=== PATIENT | male | born 1960 | race Caucasian/White ===

== ENCOUNTER 2017-08-10 00:35 | Inpatient (IN) | payer OTHER ==
[~2017-08-10] VITALS: Ht 175.3 cm; Wt 80.3 kg
[~2017-08-10 00:35] MED LIST: ALBUTEROL SULF8.5 GM IH; ASPIR-LOW81 MG PO; Aspirin E.C. PO; CHANTIX1 MG PO; CILOSTAZOL100 MG PO; Coumadin,Jantoven PO; FENOFIBRATE160 M1 PO; FISH OIL 1,2001 EAC4 PO; LASIX20 MG PO; LEXAPRO20 MG PO; LIPITOR20 MG PO; Lasix PO; Lipitor PO; Lovenox SC; Omnicef PO; PLAVIX75 MG PO; SPIRIVA1 INHALATI IH; TOPROL XL50 MG PO; Toprol XL PO; ZESTRIL20 MG PO; Zestril,Prinivil PO
[2017-08-10 01:42] LABS: HEMATOCRIT 47.3 % (38.0-50.0); MCH 27.9 PG (29.0-34.0); MCHC 32.6 G/DL (30.0-36.0); MCV 85.7 FL (86-99); MEAN PLAT.VOLUME 10.5 uM^3 (9.0-12.4); PLATELET COUNT 223 K/uL (156-360); RBC DIS.WIDTH-CV 17.6 % (11.8-14.6); RBC DIS.WIDTH-SD 52.5 % (39-53); RED BLOOD COUNT 5.52 M/uL (4.00-5.50); WHITE BLOOD COUNT 8.8 K/uL (4.1-10.2)
[2017-08-10 01:46] LABS: INTER. NORMALIZED RATIO 1.3; PROTHROMBIN TIME 14.3 SEC (10.2-12.9)
[2017-08-10 01:49] LABS: PTT 26.9 SEC (25-37)
[2017-08-10 01:52] LABS: CHLORIDE 98 mEq/L (99-109); POTASSIUM 3.9 mEq/L (3.7-5.4); SODIUM 135 mEq/L (136-147)
[2017-08-10 01:54] LABS: GLUCOSE 105 mg/dL (70-99)
[2017-08-10 01:56] LABS: ANION GAP 11 MEQ/L (2-14); TOTAL BILIRUBIN 1.7 mg/dL (0.0-1.0)
[2017-08-10 01:58] LABS: ALKALINE PHOSPHATASE 112 IU/L (3-129); GFR ESTIMATE (CALCULATED) > 59 mL/min/ (58.99-99999)
[2017-08-10 01:59] LABS: UREA NITROGEN (BUN) 16 mg/dL (9-23)
[2017-08-10 02:02] LABS: LIPASE 16 U/L (1.0-51.0); TROP-I INTERPRETATION NEGATIVE; TROPONIN-I 0.16 ng/mL (0.0-0.30)
[2017-08-10] MEDS ORDERED: LISINOPRIL20 MG PO (06:41)
[2017-08-10 07:42] LABS: MCH 27.3 PG (29.0-34.0); MCV 85.3 FL (86-99); MEAN PLAT.VOLUME 10.4 uM^3 (9.0-12.4); PLATELET COUNT 227 K/uL (156-360); RBC DIS.WIDTH-CV 17.2 % (11.8-14.6); RBC DIS.WIDTH-SD 51.7 % (39-53); RED BLOOD COUNT 5.16 M/uL (4.00-5.50); WHITE BLOOD COUNT 8.7 K/uL (4.1-10.2)
[2017-08-10 08:01] LABS: BASE EXCESS 1.9 mEq/L (-3 to +3); BICARBONATE 25.7 mEq/L (22-26); CARBOXY HGB 2.9 % (0-5); COMMENTS - BLOOD GASES C+; DEVICE NC; METHEMOGLOBIN 1.3 % (0-1.5); O2 FLOW 3 L/MIN; PCO2 37 mm Hg (35-45); PO2 111 mm Hg (80-100); SITE RR +A; TOTAL RESP RATE 22 resp/min; pH 7.45 (7.35-7.45)
[2017-08-10 08:45] LABS: INTACT PARATHYROID HORMONE 14 pg/mL (10-69)
[2017-08-10 10:00] VITALS: BP 136/86
[2017-08-10 12:29] LABS: TROP-I INTERPRETATION NEGATIVE; TROPONIN-I 0.16 ng/mL (0.0-0.30)
[2017-08-10 12:44] LABS: ANION GAP 11 MEQ/L (2-14); CHLORIDE 99 MEQ/L (99-109); GFR ESTIMATE (CALCULATED) > 59 mL/min/ (58.99-99999); GLUCOSE 109 mg/dL (70-99); POTASSIUM 4.4 MEQ/L (3.7-5.4); SAMPLE HEMOLYSIS CHECK 0; SAMPLE ICTERIC CHECK 0; SAMPLE LIPEMIA CHECK 0; SODIUM 138 MEQ/L (136-147); UREA NITROGEN (BUN) 19 mg/dL (9-23)
[2017-08-10] MEDS ORDERED: ESCITALOPRAM OX20 MG PO (12:46)
[2017-08-10 13:00] VITALS: BP 127/78
[2017-08-10 18:38] LABS: TROP-I INTERPRETATION NEGATIVE; TROPONIN-I 0.11 ng/mL (0.0-0.30)
[2017-08-10 18:40] LABS: INTER. NORMALIZED RATIO 1.3
[2017-08-10 19:30] VITALS: BP 125/83
[2017-08-11] VITALS (7 sets, daily range): BP systolic 106–140; BP diastolic 58–90
[2017-08-11 09:36] LABS: INTER. NORMALIZED RATIO 1.2; PROTHROMBIN TIME 13.7 SEC (10.2-12.9)
[2017-08-11 09:39] LABS: PTT 35.3 SEC (25-37)
[2017-08-11 10:06] LABS: ALKALINE PHOSPHATASE 77 IU/L (3-129); ANION GAP 11 MEQ/L (2-14); CHLORIDE 99 MEQ/L (99-109); GFR ESTIMATE (CALCULATED) > 59 mL/min/ (58.99-99999); GLUCOSE 97 mg/dL (70-99); SAMPLE HEMOLYSIS CHECK 0; SAMPLE ICTERIC CHECK 0; SAMPLE LIPEMIA CHECK 0; SODIUM 137 MEQ/L (136-147); TOTAL BILIRUBIN 1.2 MG/DL (0.0-1.0); UREA NITROGEN (BUN) 27 mg/dL (9-23)
[2017-08-11 10:07] LABS: POTASSIUM 3.5 MEQ/L (3.7-5.4)
[2017-08-11 11:08] LABS: EOSINOPHIL (%) 0 % (0-5); HEMATOCRIT 44.1 % (38.0-50.0); IMMATURE GRANULOCYTE (%) 0.6 % (0.0-0.7); LYMPHOCYTE COUNT 0.5 K/uL (1.0-2.8); MCH 27.4 PG (29.0-34.0); MCV 85.6 FL (86-99); MEAN PLAT.VOLUME 10.7 uM^3 (9.0-12.4); MONOCYTE (%) 6.3 % (3-12); MONOCYTE COUNT 0.4 K/uL (0-0.8); NEUTROPHIL (%) 85.6 % (45-76); PLATELET COUNT 181 K/uL (156-360); RBC DIS.WIDTH-CV 17.3 % (11.8-14.6); RBC DIS.WIDTH-SD 53.2 % (39-53); RED BLOOD COUNT 5.15 M/uL (4.00-5.50)
[2017-08-11 15:55] LABS: ADD MIUA? NO; BILIRUBIN NEGATIVE; BLOOD NEGATIVE; COLOR YELLOW ((YELLOW)); GLUCOSE (STRIP) NEGATIVE; KETONES NEGATIVE; LEUKOCYTES NEGATIVE; NITRITE NEGATIVE; PROTEIN (STRIP) 30; SPECIFIC GRAVITY 1.026 (1.000-1.030); UROBILINOGEN 0.2 MG/DL (0.2-1.0)
[2017-08-11 16:20] LABS: UR CREATININE CONCENTRATION 125.9 MG/DL
[2017-08-12 03:30] VITALS: BP 110/80
[2017-08-12 08:18] LABS: EOSINOPHIL (%) 0 % (0-5); HEMATOCRIT 41.6 % (38.0-50.0); IMMATURE GRANULOCYTE (%) 0.7 % (0.0-0.7); IMMATURE GRANULOCYTE COUNT 0.1 K/uL; LYMPHOCYTE COUNT 0.6 K/uL (1.0-2.8); MCHC 32.5 G/DL (30.0-36.0); MCV 86.1 FL (86-99); MEAN PLAT.VOLUME 10.6 uM^3 (9.0-12.4); MONOCYTE (%) 9.8 % (3-12); MONOCYTE COUNT 1.2 K/uL (0-0.8); PLATELET COUNT 232 K/uL (156-360); RBC DIS.WIDTH-CV 17.9 % (11.8-14.6); RBC DIS.WIDTH-SD 54.3 % (39-53); RED BLOOD COUNT 4.83 M/uL (4.00-5.50); WHITE BLOOD COUNT 11.9 K/uL (4.1-10.2)
[2017-08-12 08:20] LABS: INTER. NORMALIZED RATIO 1.2; PROTHROMBIN TIME 13.6 SEC (10.2-12.9)
[2017-08-12 08:23] LABS: PTT 51.4 SEC (25-37)
[2017-08-12 08:35] VITALS: BP 105/66
[2017-08-12 08:44] LABS: ALKALINE PHOSPHATASE 76 IU/L (3-129); ANION GAP 8 MEQ/L (2-14); CHLORIDE 101 MEQ/L (99-109); GFR ESTIMATE (CALCULATED) > 59 mL/min/ (58.99-99999); GLUCOSE 94 mg/dL (70-99); POTASSIUM 5.2 MEQ/L (3.7-5.4); SAMPLE HEMOLYSIS CHECK 0; SAMPLE ICTERIC CHECK 0; SAMPLE LIPEMIA CHECK 0; SODIUM 138 MEQ/L (136-147); TOTAL BILIRUBIN 0.9 MG/DL (0.0-1.0); UREA NITROGEN (BUN) 39 mg/dL (9-23)
[2017-08-12 11:44] VITALS: BP 108/67
[2017-08-12 15:15] VITALS: BP 101/67
[2017-08-12 19:00] VITALS: BP 132/80
[2017-08-12 23:00] VITALS: BP 125/76
[2017-08-13 04:00] VITALS: BP 103/72
[2017-08-13 05:04] LABS: EOSINOPHIL (%) 0 % (0-5); HEMATOCRIT 42.8 % (38.0-50.0); IMMATURE GRANULOCYTE (%) 0.6 % (0.0-0.7); IMMATURE GRANULOCYTE COUNT 0.1 K/uL; INSTRUMENT ABS NEUTROPHIL CT 8.8 K/uL; LYMPHOCYTE COUNT 1.2 K/uL (1.0-2.8); MCH 28.1 PG (29.0-34.0); MCHC 32.7 G/DL (30.0-36.0); MCV 85.8 FL (86-99); MEAN PLAT.VOLUME 10.4 uM^3 (9.0-12.4); MONOCYTE (%) 10.8 % (3-12); MONOCYTE COUNT 1.2 K/uL (0-0.8); NEUTROPHIL (%) 77.8 % (45-76); NEUTROPHIL COUNT 8.8 K/uL (1.8-6.4); PLATELET COUNT 232 K/uL (156-360); RBC DIS.WIDTH-CV 17.8 % (11.8-14.6); RBC DIS.WIDTH-SD 53.7 % (39-53); RED BLOOD COUNT 4.99 M/uL (4.00-5.50); WHITE BLOOD COUNT 11.3 K/uL (4.1-10.2)
[2017-08-13 05:08] LABS: INTER. NORMALIZED RATIO 2.2; PROTHROMBIN TIME 25.3 SEC (10.2-12.9)
[2017-08-13 05:20] LABS: CHLORIDE 99 mEq/L (99-109); POTASSIUM 4.8 mEq/L (3.7-5.4); SODIUM 136 mEq/L (136-147)
[2017-08-13 05:21] LABS: GLUCOSE 96 mg/dL (70-99)
[2017-08-13 05:23] LABS: ANION GAP 10 MEQ/L (2-14)
[2017-08-13 05:25] LABS: GFR ESTIMATE (CALCULATED) 51 mL/min/ (58.99-99999)
[2017-08-13 05:26] LABS: UREA NITROGEN (BUN) 42 mg/dL (9-23)
[2017-08-13 08:00] VITALS: BP 103/67
[2017-08-13 11:50] VITALS: BP 100/68
[2017-08-13 20:48] VITALS: BP 102/64
[2017-08-14] VITALS (13 sets, daily range): BP systolic 101–143; BP diastolic 62–100
[2017-08-14 05:15] LABS: EOSINOPHIL (%) 0.2 % (0-5); HEMATOCRIT 48.3 % (38.0-50.0); IMMATURE GRANULOCYTE (%) 0.8 % (0.0-0.7); IMMATURE GRANULOCYTE COUNT 0.1 K/uL; INSTRUMENT ABS NEUTROPHIL CT 9.7 K/uL; LYMPHOCYTE COUNT 1.5 K/uL (1.0-2.8); MCH 26.9 PG (29.0-34.0); MCHC 31.3 G/DL (30.0-36.0); MCV 85.9 FL (86-99); MEAN PLAT.VOLUME 9.8 uM^3 (9.0-12.4); MONOCYTE (%) 11.3 % (3-12); MONOCYTE COUNT 1.5 K/uL (0-0.8); NEUTROPHIL (%) 75.7 % (45-76); NEUTROPHIL COUNT 9.7 K/uL (1.8-6.4); PLATELET COUNT 270 K/uL (156-360); RBC DIS.WIDTH-CV 17.6 % (11.8-14.6); RBC DIS.WIDTH-SD 53.7 % (39-53); RED BLOOD COUNT 5.62 M/uL (4.00-5.50); WHITE BLOOD COUNT 12.8 K/uL (4.1-10.2)
[2017-08-14 05:47] LABS: ALKALINE PHOSPHATASE 77 IU/L (3-129); ANION GAP 9 MEQ/L (2-14); CHLORIDE 98 MEQ/L (99-109); GFR ESTIMATE (CALCULATED) 51 mL/min/ (58.99-99999); GLUCOSE 107 mg/dL (70-99); POTASSIUM 5.1 MEQ/L (3.7-5.4); SAMPLE HEMOLYSIS CHECK 0; SAMPLE ICTERIC CHECK 0; SAMPLE LIPEMIA CHECK 0; SODIUM 136 MEQ/L (136-147); UREA NITROGEN (BUN) 43 mg/dL (9-23)
[2017-08-14 05:49] LABS: TOTAL BILIRUBIN 1.1 MG/DL (0.0-1.0)
[2017-08-14 15:30] LABS: METH RESISTANT S AUREUS PCR NEGATIVE (NEGATIVE)
[2017-08-14 15:41] LABS: PROBE CHECK PASS; SPECIMEN PROCESSING CONTROL PASS
[2017-08-15] VITALS (21 sets, daily range): BP systolic 113–158; BP diastolic 57–122
[2017-08-15 06:21] LABS: EOSINOPHIL (%) 0.1 % (0-5); HEMATOCRIT 44.9 % (38.0-50.0); IMMATURE GRANULOCYTE (%) 0.6 % (0.0-0.7); IMMATURE GRANULOCYTE COUNT 0.1 K/uL; INSTRUMENT ABS NEUTROPHIL CT 8.3 K/uL; LYMPHOCYTE COUNT 1.4 K/uL (1.0-2.8); MCH 27.2 PG (29.0-34.0); MCHC 32.3 G/DL (30.0-36.0); MCV 84.1 FL (86-99); MEAN PLAT.VOLUME 10.5 uM^3 (9.0-12.4); MONOCYTE (%) 11.9 % (3-12); MONOCYTE COUNT 1.3 K/uL (0-0.8); NEUTROPHIL (%) 74.4 % (45-76); NEUTROPHIL COUNT 8.3 K/uL (1.8-6.4); PLATELET COUNT 263 K/uL (156-360); RBC DIS.WIDTH-CV 17.7 % (11.8-14.6); RED BLOOD COUNT 5.34 M/uL (4.00-5.50); WHITE BLOOD COUNT 11.2 K/uL (4.1-10.2)
[2017-08-15 07:05] LABS: ANION GAP 8 MEQ/L (2-14); CHLORIDE 97 MEQ/L (99-109); GFR ESTIMATE (CALCULATED) 48 mL/min/ (58.99-99999); GLUCOSE 97 mg/dL (70-99); MAGNESIUM 1.9 mg/dl (1.3-2.7); POTASSIUM 4.5 MEQ/L (3.7-5.4); SAMPLE HEMOLYSIS CHECK 0; SAMPLE ICTERIC CHECK 0; SAMPLE LIPEMIA CHECK 0; SODIUM 140 MEQ/L (136-147); UREA NITROGEN (BUN) 44 mg/dL (9-23)
[2017-08-16] VITALS (17 sets, daily range): BP systolic 108–148; BP diastolic 64–113
[2017-08-16 05:40] LABS: EOSINOPHIL (%) 0.3 % (0-5); HEMATOCRIT 46.4 % (38.0-50.0); IMMATURE GRANULOCYTE (%) 0.3 % (0.0-0.7); LYMPHOCYTE COUNT 1.2 K/uL (1.0-2.8); MCH 27.9 PG (29.0-34.0); MCV 84.5 FL (86-99); MEAN PLAT.VOLUME 9.9 uM^3 (9.0-12.4); MONOCYTE (%) 12.4 % (3-12); MONOCYTE COUNT 1.5 K/uL (0-0.8); NEUTROPHIL (%) 76.3 % (45-76); PLATELET COUNT 273 K/uL (156-360); RBC DIS.WIDTH-CV 18.3 % (11.8-14.6); RBC DIS.WIDTH-SD 53.1 % (39-53); RED BLOOD COUNT 5.49 M/uL (4.00-5.50); WHITE BLOOD COUNT 11.8 K/uL (4.1-10.2)
[2017-08-16 06:09] LABS: ANION GAP 12 MEQ/L (2-14); CHLORIDE 92 MEQ/L (99-109); GFR ESTIMATE (CALCULATED) 48 mL/min/ (58.99-99999); GLUCOSE 92 mg/dL (70-99); POTASSIUM 3.8 MEQ/L (3.7-5.4); SAMPLE HEMOLYSIS CHECK 0; SAMPLE ICTERIC CHECK 0; SAMPLE LIPEMIA CHECK 0; SODIUM 142 MEQ/L (136-147); UREA NITROGEN (BUN) 45 mg/dL (9-23)
[2017-08-17] VITALS (12 sets, daily range): BP systolic 113–129; BP diastolic 76–99
[2017-08-17 06:07] LABS: EOSINOPHIL (%) 0.2 % (0-5); HEMATOCRIT 47.1 % (38.0-50.0); IMMATURE GRANULOCYTE (%) 0.4 % (0.0-0.7); LYMPHOCYTE COUNT 1.5 K/uL (1.0-2.8); MCH 27.7 PG (29.0-34.0); MCHC 32.1 G/DL (30.0-36.0); MCV 86.3 FL (86-99); MEAN PLAT.VOLUME 10.4 uM^3 (9.0-12.4); MONOCYTE (%) 13.6 % (3-12); MONOCYTE COUNT 1.3 K/uL (0-0.8); NEUTROPHIL (%) 70.9 % (45-76); PLATELET COUNT 280 K/uL (156-360); RBC DIS.WIDTH-CV 18.3 % (11.8-14.6); RBC DIS.WIDTH-SD 54.6 % (39-53); RED BLOOD COUNT 5.46 M/uL (4.00-5.50); WHITE BLOOD COUNT 9.9 K/uL (4.1-10.2)
[2017-08-17 07:09] LABS: ANION GAP 8 MEQ/L (2-14); CHLORIDE 95 MEQ/L (99-109); GFR ESTIMATE (CALCULATED) 42 mL/min/ (58.99-99999); GLUCOSE 84 mg/dL (70-99); SAMPLE HEMOLYSIS CHECK 0; SAMPLE ICTERIC CHECK 0; SAMPLE LIPEMIA CHECK 0; SODIUM 143 MEQ/L (136-147); UREA NITROGEN (BUN) 44 mg/dL (9-23)
[2017-08-17 07:13] LABS: POTASSIUM 4.8 MEQ/L (3.7-5.4)
[2017-08-18 00:04] VITALS: BP 113/78
[2017-08-18 03:50] VITALS: BP 122/81
[2017-08-18 04:21] LABS: EOSINOPHIL (%) 0.2 % (0-5); HEMATOCRIT 45.8 % (38.0-50.0); IMMATURE GRANULOCYTE (%) 0.3 % (0.0-0.7); INSTRUMENT ABS NEUTROPHIL CT 6.7 K/uL; LYMPHOCYTE COUNT 1.6 K/uL (1.0-2.8); MCH 27.5 PG (29.0-34.0); MCHC 32.5 G/DL (30.0-36.0); MCV 84.7 FL (86-99); MONOCYTE (%) 11.7 % (3-12); MONOCYTE COUNT 1.1 K/uL (0-0.8); NEUTROPHIL (%) 71.1 % (45-76); NEUTROPHIL COUNT 6.7 K/uL (1.8-6.4); PLATELET COUNT 268 K/uL (156-360); RBC DIS.WIDTH-CV 17.6 % (11.8-14.6); RBC DIS.WIDTH-SD 52.6 % (39-53); RED BLOOD COUNT 5.41 M/uL (4.00-5.50); WHITE BLOOD COUNT 9.4 K/uL (4.1-10.2)
[2017-08-18 04:32] LABS: CHLORIDE 100 mEq/L (99-109); POTASSIUM 4.6 mEq/L (3.7-5.4); SODIUM 138 mEq/L (136-147)
[2017-08-18 04:33] LABS: MAGNESIUM 2.2 mg/dL (1.3-2.7)
[2017-08-18 04:34] LABS: GLUCOSE 101 mg/dL (70-99)
[2017-08-18 04:36] LABS: ANION GAP 11 MEQ/L (2-14)
[2017-08-18 04:38] LABS: GFR ESTIMATE (CALCULATED) 56 mL/min/ (58.99-99999)
[2017-08-18 04:39] LABS: UREA NITROGEN (BUN) 42 mg/dL (9-23)
[2017-08-18 04:47] LABS: TROP-I INTERPRETATION NEGATIVE; TROPONIN-I 0.06 ng/mL (0.0-0.30)
[2017-08-18 07:15] LABS: ANION GAP 7 MEQ/L (2-14); CHLORIDE 98 MEQ/L (99-109); GFR ESTIMATE (CALCULATED) 51 mL/min/ (58.99-99999); GLUCOSE 81 mg/dL (70-99); POTASSIUM 4.7 MEQ/L (3.7-5.4); SAMPLE HEMOLYSIS CHECK 0; SAMPLE ICTERIC CHECK 0; SAMPLE LIPEMIA CHECK 0; SODIUM 141 MEQ/L (136-147); UREA NITROGEN (BUN) 43 mg/dL (9-23)
[2017-08-18 07:46] VITALS: BP 126/88
[2017-08-18 11:43] VITALS: BP 122/70
[2017-08-18 16:08] VITALS: BP 121/81
[2017-08-18 19:37] VITALS: BP 115/69
[2017-08-19 00:27] VITALS: BP 108/76
[2017-08-19 03:32] VITALS: BP 120/80
[2017-08-19 06:34] LABS: EOSINOPHIL (%) 0.4 % (0-5); EOSINOPHIL COUNT 0.1 K/uL (0-0.3); HEMATOCRIT 47.5 % (38.0-50.0); IMMATURE GRANULOCYTE (%) 0.4 % (0.0-0.7); IMMATURE GRANULOCYTE COUNT 0.1 K/uL; INSTRUMENT ABS NEUTROPHIL CT 8.1 K/uL; LYMPHOCYTE COUNT 2.3 K/uL (1.0-2.8); MCH 27.8 PG (29.0-34.0); MCHC 32.2 G/DL (30.0-36.0); MCV 86.4 FL (86-99); MEAN PLAT.VOLUME 10.3 uM^3 (9.0-12.4); MONOCYTE (%) 10.1 % (3-12); MONOCYTE COUNT 1.2 K/uL (0-0.8); NEUTROPHIL (%) 69.2 % (45-76); NEUTROPHIL COUNT 8.1 K/uL (1.8-6.4); PLATELET COUNT 273 K/uL (156-360); RBC DIS.WIDTH-CV 18.6 % (11.8-14.6); RBC DIS.WIDTH-SD 55.1 % (39-53); WHITE BLOOD COUNT 11.6 K/uL (4.1-10.2)
[2017-08-19 06:57] LABS: ANION GAP 10 MEQ/L (2-14); CHLORIDE 98 MEQ/L (99-109); GFR ESTIMATE (CALCULATED) 51 mL/min/ (58.99-99999); GLUCOSE 84 mg/dL (70-99); POTASSIUM 5.2 MEQ/L (3.7-5.4); SAMPLE HEMOLYSIS CHECK 0; SAMPLE ICTERIC CHECK 0; SAMPLE LIPEMIA CHECK 0; SODIUM 138 MEQ/L (136-147); UREA NITROGEN (BUN) 42 mg/dL (9-23)
[2017-08-19 08:13] VITALS: BP 110/75
[2017-08-19 12:10] VITALS: BP 112/71
[2017-08-19 16:21] VITALS: BP 115/68
[2017-08-19 20:22] VITALS: BP 131/77
[2017-08-20 00:02] VITALS: BP 113/74
[2017-08-20 04:00] VITALS: BP 135/85
[2017-08-20 06:31] VITALS: BP 112/81
[2017-08-20 07:14] LABS: ANION GAP 5 MEQ/L (2-14); CHLORIDE 98 MEQ/L (99-109); GFR ESTIMATE (CALCULATED) > 59 mL/min/ (58.99-99999); GLUCOSE 80 mg/dL (70-99); POTASSIUM 5.1 MEQ/L (3.7-5.4); SAMPLE HEMOLYSIS CHECK 0; SAMPLE ICTERIC CHECK 0; SAMPLE LIPEMIA CHECK 0; SODIUM 136 MEQ/L (136-147); UREA NITROGEN (BUN) 37 mg/dL (9-23)
[2017-08-20] MEDS ORDERED: ASPIR-LOW81 MG PO (08:54)
[2017-08-20] MEDS ORDERED: SPIRIVA RESPIMAT4 GM IH (08:54)
[2017-08-20] MEDS ORDERED: ELIQUIS5 MG PO (08:54)
[2017-08-20] MEDS ORDERED: CARVEDILOL3.125 MG PO (08:54)
[2017-08-20] MEDS ORDERED: FUROSEMIDE20 MG PO (08:54)
[2017-08-20] MEDS ORDERED: LISINOPRIL2.5 MG PO (09:51)
== END 2017-08-20 12:19 | disposition home or self-care (01) | DRG 291 ==
LOC: EME → EDBD 00:35 → EME 00:35 → EDOF 04:17 → 4EAST 04:17 → 4WEST 04:17 → ENRESERV 04:17 → 4EAST 06:16 → ENRESERV 08-14 10:49 → 4WEST 08-14 12:50 → ENRESERV 08-15 15:22 → CANRESERV 08-15 15:26 → 4WEST 08-15 15:31 → ENRESERV 08-17 09:42 → 5SOUTH 08-17 11:05
PROVIDERS: Emergency Medicine; Hospitalist; Internal Medicine Nephrology; Nurse Practitioner Adult Health; Specialist; Student in an Organized Health Care Education/Training Program
DX: I13.0 Hypertensive heart and chronic kidney disease with heart failure and stage 1 through stage 4 chronic kidney disease, or unspecified chronic kidney disease (principal); I26.09 Other pulmonary embolism with acute cor pulmonale; J96.01 Acute respiratory failure with hypoxia; E87.4 Mixed disorder of acid-base balance; J18.9 Pneumonia, unspecified organism; I27.20 Pulmonary hypertension, unspecified; I08.1 Rheumatic disorders of both mitral and tricuspid valves; I50.9 Heart failure, unspecified; J44.1 Chronic obstructive pulmonary disease with (acute) exacerbation; N17.9 Acute kidney failure, unspecified; I50.23 Acute on chronic systolic (congestive) heart failure; L97.929 Non-pressure chronic ulcer of unspecified part of left lower leg with unspecified severity; L97.919 Non-pressure chronic ulcer of unspecified part of right lower leg with unspecified severity; E83.52 Hypercalcemia; J44.0 Chronic obstructive pulmonary disease with (acute) lower respiratory infection; R18.8 Other ascites; F17.210 Nicotine dependence, cigarettes, uncomplicated; R21 Rash and other nonspecific skin eruption; F32.9 Major depressive disorder, single episode, unspecified; I34.0 Nonrheumatic mitral (valve) insufficiency; I25.119 Atherosclerotic heart disease of native coronary artery with unspecified angina pectoris; E78.5 Hyperlipidemia, unspecified; I25.5 Ischemic cardiomyopathy; J98.11 Atelectasis; E78.00 Pure hypercholesterolemia, unspecified; Z91.14 Patient's other noncompliance with medication regimen; Z72.89 Other problems related to lifestyle; I25.2 Old myocardial infarction; Z87.891 Personal history of nicotine dependence; Z79.01 Long term (current) use of anticoagulants; Z79.82 Long term (current) use of aspirin; R57.0 Cardiogenic shock; T50.1X5A Adverse effect of loop [high-ceiling] diuretics, initial encounter; E87.3 Alkalosis; N18.9 Chronic kidney disease, unspecified; Z79.899 Other long term (current) drug therapy; I73.9 Peripheral vascular disease, unspecified; N14.1 Nephropathy induced by other drugs, medicaments and biological substances
CPT/HCPCS: 36600; 71010; 71035; 71275; 74176; 80048; 80048 91; 80053; 81003; 82306; 82570; 82803; 83519 90; 83605; 83690; 83735; 83880; 83883 90; 83970; 84100; 84156; 84484; 85025; 85027; 85610; 85730; 86334; 87040; 87070; 87075; 87205; 87502; 87641; 90686; 93005; 93306; 93925; 93970; 94010; 94640; 94640 76; 94760; 94799; 99202; 99281; 99285; A6260; J0696; J1940; J2260; J2920; J2930; J3370; J7512

== ENCOUNTER 2017-09-28 01:28 | Inpatient (IN) | payer OTHER ==
[~2017-09-28] VITALS: Ht 175.3 cm; Wt 92.8 kg
[~2017-09-28 01:28] MED LIST changes: +CARVEDILOL3.125 MG PO; +ELIQUIS5 MG PO; +ESCITALOPRAM OX20 MG PO; +FUROSEMIDE20 MG PO; +LISINOPRIL2.5 MG PO; +LISINOPRIL20 MG PO; +SPIRIVA RESPIMAT4 GM IH
[2017-09-28 02:46] LABS: HEMATOCRIT 43.2 % (38.0-50.0); MCH 27.3 PG (29.0-34.0); MCHC 32.4 G/DL (30.0-36.0); MCV 84.4 FL (86-99); PLATELET COUNT 321 K/uL (156-360); RBC DIS.WIDTH-CV 20.7 % (11.8-14.6); RBC DIS.WIDTH-SD 61.4 % (39-53); RED BLOOD COUNT 5.12 M/uL (4.00-5.50); WHITE BLOOD COUNT 10.7 K/uL (4.1-10.2)
[2017-09-28 02:57] LABS: ALBUMIN 3.4 g/dL (3.2-4.8); CHLORIDE 93 mEq/L (99-109); POTASSIUM 4.6 mEq/L (3.7-5.4); SODIUM 126 mEq/L (136-147)
[2017-09-28 02:59] LABS: GLUCOSE 106 mg/dL (70-99)
[2017-09-28 03:00] LABS: TOTAL PROTEIN 6.3 g/dL (6.4-8.3)
[2017-09-28 03:01] LABS: TOTAL BILIRUBIN 1.8 mg/dL (0.0-1.0)
[2017-09-28 03:03] LABS: ALKALINE PHOSPHATASE 143 IU/L (3-129); CREATININE 1.2 mg/dL (0.6-1.3); GFR ESTIMATE (CALCULATED) > 59 mL/min/ (58.99-99999)
[2017-09-28 03:04] LABS: UREA NITROGEN (BUN) 22 mg/dL (9-23)
[2017-09-28 03:05] LABS: AST (GOT) 31 IU/L (2-34)
[2017-09-28 03:06] LABS: ALT (GPT) 117 IU/L (3-49); LIPASE 48 U/L (1.0-51.0); TROP-I INTERPRETATION NEGATIVE; TROPONIN-I 0.06 ng/mL (0.0-0.30)
[2017-09-28 11:43] VITALS: BP 131/75
[2017-09-28 12:22] LABS: HEPATITIS B SURFACE ANTIGEN Nonreactive
[2017-09-28 12:23] LABS: HEPATITIS B SURFACE ANTIBODY Nonreactive; HEPATITIS C ANTIBODY Nonreactive
[2017-09-28 16:36] VITALS: BP 125/77
[2017-09-28 19:58] VITALS: BP 123/81
[2017-09-28 23:57] VITALS: BP 129/91
[2017-09-29 04:43] VITALS: BP 120/79
[2017-09-29 06:28] LABS: HEMATOCRIT 40.5 % (38.0-50.0); HEMOGLOBIN 12.7 G/DL (12.5-16.6); MCH 26.2 PG (29.0-34.0); MCHC 31.4 G/DL (30.0-36.0); MCV 83.5 FL (86-99); PLATELET COUNT 275 K/uL (156-360); RBC DIS.WIDTH-CV 20.2 % (11.8-14.6); RED BLOOD COUNT 4.85 M/uL (4.00-5.50); WHITE BLOOD COUNT 8.8 K/uL (4.1-10.2)
[2017-09-29 06:54] LABS: CHLORIDE 91 MEQ/L (99-109); CREATININE 1.4 MG/DL (0.6-1.3); GFR ESTIMATE (CALCULATED) 56 mL/min/ (58.99-99999); GLUCOSE 82 mg/dL (70-99); POTASSIUM 4.1 MEQ/L (3.7-5.4); SODIUM 127 MEQ/L (136-147); UREA NITROGEN (BUN) 26 mg/dL (9-23)
[2017-09-29 07:27] VITALS: BP 120/80
[2017-09-29 12:08] VITALS: BP 119/77
[2017-09-29 16:01] VITALS: BP 118/72
[2017-09-29 19:46] VITALS: BP 121/75
[2017-09-29 23:58] VITALS: BP 112/77
[2017-09-30 03:41] VITALS: BP 116/74
[2017-09-30 07:53] VITALS: BP 127/90
[2017-09-30 08:50] LABS: HEMATOCRIT 42.6 % (38.0-50.0); HEMOGLOBIN 13.2 G/DL (12.5-16.6); MCH 26.3 PG (29.0-34.0); PLATELET COUNT 260 K/uL (156-360); RBC DIS.WIDTH-CV 20.5 % (11.8-14.6); RBC DIS.WIDTH-SD 61.3 % (39-53); RED BLOOD COUNT 5.01 M/uL (4.00-5.50); WHITE BLOOD COUNT 8.4 K/uL (4.1-10.2)
[2017-09-30 09:10] LABS: CHLORIDE 94 mEq/L (99-109); SODIUM 132 mEq/L (136-147)
[2017-09-30 09:11] LABS: POTASSIUM 5.1 mEq/L (3.7-5.4)
[2017-09-30 09:12] LABS: GLUCOSE 91 mg/dL (70-99)
[2017-09-30 09:16] LABS: CREATININE 1.5 mg/dL (0.6-1.3); GFR ESTIMATE (CALCULATED) 51 mL/min/ (58.99-99999)
[2017-09-30 09:17] LABS: UREA NITROGEN (BUN) 29 mg/dL (9-23)
[2017-09-30] MEDS ORDERED: SSD25GM TP (10:33)
[2017-09-30] MEDS ORDERED: HYDROCODON-ACE1 EAC7 PO (10:33)
[2017-09-30] MEDS ORDERED: CEPHALEXIN500 MG PO (10:33)
[2017-09-30 12:33] VITALS: BP 130/95
[2017-09-30 16:30] VITALS: BP 112/76
[2017-09-30 19:40] VITALS: BP 119/78
[2017-10-01 00:20] VITALS: BP 117/86
[2017-10-01 04:22] VITALS: BP 119/83
[2017-10-01 07:12] LABS: CHLORIDE 95 MEQ/L (99-109); CREATININE 1.5 MG/DL (0.6-1.3); GFR ESTIMATE (CALCULATED) 51 mL/min/ (58.99-99999); GLUCOSE 82 mg/dL (70-99); POTASSIUM 4.7 MEQ/L (3.7-5.4); SODIUM 132 MEQ/L (136-147); UREA NITROGEN (BUN) 30 mg/dL (9-23)
[2017-10-01 07:43] VITALS: BP 129/92
== END 2017-10-01 16:40 | disposition home health service (06) | DRG 603 ==
LOC: EME → EDBD 01:28 → EME 01:28 → EDOF 06:20 → 5SOUTH 06:20 → ENRESERV 06:21 → 5SOUTH 11:08 → ENPENDDIS 10-01 12:12 → 5SOUTH 10-01 16:40
PROVIDERS: Emergency Medicine; Hospitalist; Physician Assistant Medical
DX: L03.116 Cellulitis of left lower limb (principal); L03.115 Cellulitis of right lower limb; Z79.01 Long term (current) use of anticoagulants; I13.0 Hypertensive heart and chronic kidney disease with heart failure and stage 1 through stage 4 chronic kidney disease, or unspecified chronic kidney disease; E87.1 Hypo-osmolality and hyponatremia; I27.20 Pulmonary hypertension, unspecified; E55.9 Vitamin D deficiency, unspecified; I25.5 Ischemic cardiomyopathy; Z86.711 Personal history of pulmonary embolism; J44.9 Chronic obstructive pulmonary disease, unspecified; I73.9 Peripheral vascular disease, unspecified; L97.821 Non-pressure chronic ulcer of other part of left lower leg limited to breakdown of skin; L97.811 Non-pressure chronic ulcer of other part of right lower leg limited to breakdown of skin; E78.00 Pure hypercholesterolemia, unspecified; I08.3 Combined rheumatic disorders of mitral, aortic and tricuspid valves; K74.60 Unspecified cirrhosis of liver; N18.3 Chronic kidney disease, stage 3 (moderate); E78.5 Hyperlipidemia, unspecified; F17.200 Nicotine dependence, unspecified, uncomplicated; I25.10 Atherosclerotic heart disease of native coronary artery without angina pectoris; I25.2 Old myocardial infarction; N17.9 Acute kidney failure, unspecified
CPT/HCPCS: 71045; 76705; 80048; 80053; 83605; 83690; 83880; 84484; 85027; 86706; 86803; 87040; 87070; 87075; 87205; 87340; 93005; 94640; 94640 76; 99281; 99285; J1940; J3370

== ENCOUNTER 2017-12-10 13:47 | Inpatient (IN) | payer OTHER ==
[~2017-12-10] VITALS: Ht 175.3 cm; Wt 78.6 kg
[~2017-12-10 13:47] MED LIST changes: +CEPHALEXIN500 MG PO; +HYDROCODON-ACE1 EAC7 PO; +SSD25GM TP
[2017-12-10 14:46] LABS: BASOPHIL (%) 0.4 % (0-1); EOSINOPHIL (%) 1.5 % (0-5); EOSINOPHIL COUNT 0.1 K/uL (0-0.3); HEMATOCRIT 45.8 % (38.0-50.0); HEMOGLOBIN 14.6 G/DL (12.5-16.6); IMMATURE GRANULOCYTE (%) 0.5 % (0.0-0.7); LYMPHOCYTE (%) 8.5 % (15-42); LYMPHOCYTE COUNT 0.8 K/uL (1.0-2.8); MCH 27.1 PG (29.0-34.0); MCHC 31.9 G/DL (30.0-36.0); MCV 85.1 FL (86-99); MONOCYTE (%) 10.3 % (3-12); NEUTROPHIL (%) 78.8 % (45-76); NEUTROPHIL COUNT 7.3 K/uL (1.8-6.4); PLATELET COUNT 292 K/uL (156-360); RBC DIS.WIDTH-CV 17.5 % (11.8-14.6); RBC DIS.WIDTH-SD 53.6 % (39-53); RED BLOOD COUNT 5.38 M/uL (4.00-5.50); WHITE BLOOD COUNT 9.3 K/uL (4.1-10.2)
[2017-12-10 14:52] LABS: ALBUMIN 3.5 g/dL (3.2-4.8); CHLORIDE 99 mEq/L (99-109); POTASSIUM 4.6 mEq/L (3.7-5.4); SODIUM 139 mEq/L (136-147)
[2017-12-10 14:54] LABS: GLUCOSE 90 mg/dL (70-99)
[2017-12-10 14:55] LABS: TOTAL PROTEIN 7.9 g/dL (6.4-8.3)
[2017-12-10 14:56] LABS: TOTAL BILIRUBIN 0.9 mg/dL (0.0-1.0)
[2017-12-10 14:58] LABS: ALKALINE PHOSPHATASE 104 IU/L (3-129); CREATININE 1.1 mg/dL (0.6-1.3); GFR ESTIMATE (CALCULATED) > 59 mL/min/ (58.99-99999)
[2017-12-10 14:59] LABS: UREA NITROGEN (BUN) 20 mg/dL (9-23)
[2017-12-10 15:00] LABS: AST (GOT) 16 IU/L (2-34)
[2017-12-10 15:01] LABS: ALT (GPT) 15 IU/L (3-49)
[2017-12-10] MEDS ORDERED: FUROSEMIDE40 MG PO (15:28)
[2017-12-10] MEDS ORDERED: SPIRIVA RESPIMAT4 GM IH (15:30)
[2017-12-10 16:44] LABS: ERTH.SED.RATE 81 MM/HR (0-20)
[2017-12-10 16:45] LABS: C-REACTIVE PROTEIN 49.1 MG/L (0-10)
[2017-12-10 17:54] VITALS: BP 138/78
[2017-12-10 21:45] VITALS: BP 121/71
[2017-12-10 22:37] VITALS: BP 118/69
[2017-12-11 06:52] LABS: BASOPHIL (%) 0.3 % (0-1); EOSINOPHIL (%) 0.7 % (0-5); EOSINOPHIL COUNT 0.1 K/uL (0-0.3); HEMATOCRIT 40.7 % (38.0-50.0); HEMOGLOBIN 12.9 G/DL (12.5-16.6); IMMATURE GRANULOCYTE (%) 0.6 % (0.0-0.7); LYMPHOCYTE COUNT 0.8 K/uL (1.0-2.8); MCHC 31.7 G/DL (30.0-36.0); MCV 85.1 FL (86-99); MONOCYTE (%) 10.7 % (3-12); MONOCYTE COUNT 1.2 K/uL (0-0.8); NEUTROPHIL (%) 80.7 % (45-76); NEUTROPHIL COUNT 9.2 K/uL (1.8-6.4); PLATELET COUNT 254 K/uL (156-360); RBC DIS.WIDTH-CV 17.4 % (11.8-14.6); RED BLOOD COUNT 4.78 M/uL (4.00-5.50); WHITE BLOOD COUNT 11.4 K/uL (4.1-10.2)
[2017-12-11 07:29] LABS: CHLORIDE 104 MEQ/L (99-109); CREATININE 1.1 MG/DL (0.6-1.3); GFR ESTIMATE (CALCULATED) > 59 mL/min/ (58.99-99999); GLUCOSE 87 mg/dL (70-99); POTASSIUM 4.3 MEQ/L (3.7-5.4); SODIUM 136 MEQ/L (136-147); UREA NITROGEN (BUN) 19 mg/dL (9-23)
[2017-12-11 07:37] VITALS: BP 123/77
[2017-12-11 16:41] VITALS: BP 104/59
[2017-12-11 22:50] VITALS: BP 123/69
[2017-12-12 06:14] LABS: BASOPHIL (%) 0.4 % (0-1); EOSINOPHIL (%) 1.5 % (0-5); EOSINOPHIL COUNT 0.2 K/uL (0-0.3); HEMOGLOBIN 12.1 G/DL (12.5-16.6); IMMATURE GRANULOCYTE (%) 0.7 % (0.0-0.7); LYMPHOCYTE (%) 9.7 % (15-42); MCH 26.9 PG (29.0-34.0); MCHC 31.8 G/DL (30.0-36.0); MCV 84.6 FL (86-99); MONOCYTE (%) 12.3 % (3-12); MONOCYTE COUNT 1.3 K/uL (0-0.8); NEUTROPHIL (%) 75.4 % (45-76); NEUTROPHIL COUNT 7.8 K/uL (1.8-6.4); PLATELET COUNT 242 K/uL (156-360); RBC DIS.WIDTH-CV 17.4 % (11.8-14.6); RBC DIS.WIDTH-SD 53.5 % (39-53); RED BLOOD COUNT 4.49 M/uL (4.00-5.50); WHITE BLOOD COUNT 10.3 K/uL (4.1-10.2)
[2017-12-12 06:40] LABS: CHLORIDE 100 MEQ/L (99-109); CREATININE 1.4 MG/DL (0.6-1.3); GFR ESTIMATE (CALCULATED) 56 mL/min/ (58.99-99999); GLUCOSE 85 mg/dL (70-99); POTASSIUM 4.1 MEQ/L (3.7-5.4); SODIUM 138 MEQ/L (136-147); UREA NITROGEN (BUN) 21 mg/dL (9-23)
[2017-12-12 07:30] VITALS: BP 106/70
[2017-12-12 15:00] VITALS: BP 100/57
[2017-12-12 22:56] VITALS: BP 100/68
[2017-12-13 06:33] LABS: BASOPHIL (%) 0.5 % (0-1); EOSINOPHIL COUNT 0.3 K/uL (0-0.3); HEMATOCRIT 38.8 % (38.0-50.0); HEMOGLOBIN 12.8 G/DL (12.5-16.6); IMMATURE GRANULOCYTE (%) 0.7 % (0.0-0.7); LYMPHOCYTE (%) 12.2 % (15-42); LYMPHOCYTE COUNT 1.1 K/uL (1.0-2.8); MCH 27.7 PG (29.0-34.0); MONOCYTE (%) 12.4 % (3-12); MONOCYTE COUNT 1.1 K/uL (0-0.8); NEUTROPHIL (%) 71.2 % (45-76); NEUTROPHIL COUNT 6.1 K/uL (1.8-6.4); PLATELET COUNT 257 K/uL (156-360); RBC DIS.WIDTH-CV 17.2 % (11.8-14.6); RBC DIS.WIDTH-SD 52.5 % (39-53); RED BLOOD COUNT 4.62 M/uL (4.00-5.50); WHITE BLOOD COUNT 8.6 K/uL (4.1-10.2)
[2017-12-13 06:35] LABS: CHLORIDE 99 MEQ/L (99-109); CREATININE 1.4 MG/DL (0.6-1.3); GFR ESTIMATE (CALCULATED) 56 mL/min/ (58.99-99999); GLUCOSE 84 mg/dL (70-99); POTASSIUM 4.1 MEQ/L (3.7-5.4); SODIUM 136 MEQ/L (136-147); UREA NITROGEN (BUN) 26 mg/dL (9-23)
[2017-12-13 06:50] VITALS: BP 107/64
[2017-12-13 15:00] VITALS: BP 100/65
[2017-12-13 20:50] VITALS: BP 96/62
[2017-12-13 23:38] VITALS: BP 101/69
[2017-12-14 06:46] LABS: BASOPHIL (%) 0.6 % (0-1); BASOPHIL COUNT 0.1 K/uL (0-0.1); EOSINOPHIL (%) 2.8 % (0-5); EOSINOPHIL COUNT 0.2 K/uL (0-0.3); HEMATOCRIT 39.2 % (38.0-50.0); HEMOGLOBIN 12.4 G/DL (12.5-16.6); IMMATURE GRANULOCYTE (%) 0.6 % (0.0-0.7); LYMPHOCYTE (%) 11.7 % (15-42); LYMPHOCYTE COUNT 0.9 K/uL (1.0-2.8); MCH 26.6 PG (29.0-34.0); MCHC 31.6 G/DL (30.0-36.0); MCV 83.9 FL (86-99); MONOCYTE (%) 12.2 % (3-12); NEUTROPHIL (%) 72.1 % (45-76); NEUTROPHIL COUNT 5.7 K/uL (1.8-6.4); PLATELET COUNT 270 K/uL (156-360); RBC DIS.WIDTH-CV 17.1 % (11.8-14.6); RBC DIS.WIDTH-SD 52.5 % (39-53); RED BLOOD COUNT 4.67 M/uL (4.00-5.50); WHITE BLOOD COUNT 7.9 K/uL (4.1-10.2)
[2017-12-14 07:12] LABS: CHLORIDE 100 MEQ/L (99-109); CREATININE 1.5 MG/DL (0.6-1.3); GFR ESTIMATE (CALCULATED) 51 mL/min/ (58.99-99999); GLUCOSE 90 mg/dL (70-99); POTASSIUM 3.7 MEQ/L (3.7-5.4); SODIUM 140 MEQ/L (136-147); UREA NITROGEN (BUN) 27 mg/dL (9-23)
[2017-12-14 07:23] VITALS: BP 102/67
[2017-12-14 16:20] VITALS: BP 102/66
[2017-12-14 20:42] VITALS: BP 103/68
[2017-12-14 23:05] VITALS: BP 121/73
[2017-12-15 06:51] LABS: HEMATOCRIT 38.8 % (38.0-50.0); HEMOGLOBIN 12.1 G/DL (12.5-16.6); MCH 26.3 PG (29.0-34.0); MCHC 31.2 G/DL (30.0-36.0); MCV 84.3 FL (86-99); PLATELET COUNT 268 K/uL (156-360); RBC DIS.WIDTH-CV 16.9 % (11.8-14.6); WHITE BLOOD COUNT 8.7 K/uL (4.1-10.2)
[2017-12-15 07:13] LABS: CHLORIDE 99 MEQ/L (99-109); CREATININE 1.6 MG/DL (0.6-1.3); GFR ESTIMATE (CALCULATED) 48 mL/min/ (58.99-99999); GLUCOSE 84 mg/dL (70-99); POTASSIUM 3.9 MEQ/L (3.7-5.4); SODIUM 138 MEQ/L (136-147); UREA NITROGEN (BUN) 29 mg/dL (9-23)
[2017-12-15 07:27] VITALS: BP 102/66
[2017-12-15 16:33] VITALS: BP 103/53
[2017-12-15 20:23] VITALS: BP 112/72
[2017-12-15 23:36] VITALS: BP 106/61
[2017-12-16 06:25] LABS: BASOPHIL (%) 0.6 % (0-1); BASOPHIL COUNT 0.1 K/uL (0-0.1); EOSINOPHIL (%) 2.5 % (0-5); EOSINOPHIL COUNT 0.2 K/uL (0-0.3); HEMATOCRIT 39.8 % (38.0-50.0); HEMOGLOBIN 12.4 G/DL (12.5-16.6); IMMATURE GRANULOCYTE (%) 0.6 % (0.0-0.7); LYMPHOCYTE (%) 14.3 % (15-42); LYMPHOCYTE COUNT 1.2 K/uL (1.0-2.8); MCH 26.6 PG (29.0-34.0); MCHC 31.2 G/DL (30.0-36.0); MCV 85.4 FL (86-99); MONOCYTE (%) 11.6 % (3-12); NEUTROPHIL (%) 70.4 % (45-76); NEUTROPHIL COUNT 5.8 K/uL (1.8-6.4); PLATELET COUNT 274 K/uL (156-360); RBC DIS.WIDTH-CV 17.2 % (11.8-14.6); RBC DIS.WIDTH-SD 52.9 % (39-53); RED BLOOD COUNT 4.66 M/uL (4.00-5.50); WHITE BLOOD COUNT 8.3 K/uL (4.1-10.2)
[2017-12-16 06:44] LABS: CHLORIDE 98 MEQ/L (99-109); CREATININE 1.6 MG/DL (0.6-1.3); GFR ESTIMATE (CALCULATED) 48 mL/min/ (58.99-99999); GLUCOSE 84 mg/dL (70-99); POTASSIUM 4.3 MEQ/L (3.7-5.4); SODIUM 138 MEQ/L (136-147); UREA NITROGEN (BUN) 30 mg/dL (9-23)
[2017-12-16 07:47] VITALS: BP 119/67
[2017-12-16] MEDS ORDERED: VENTOLIN HFA18 GM IH (10:37)
[2017-12-16] MEDS ORDERED: HYDROCODON-ACE1 EAC7 PO (10:38)
[2017-12-16] MEDS ORDERED: SSD25GM TP (10:38)
== END 2017-12-16 15:39 | disposition home health service (06) | DRG 603 ==
LOC: EME 13:47 → EDOF 15:34 → 5EAST 15:34 → ENRESERV 15:37 → 5EAST 17:24 → ENPENDDIS 12-16 → 5EAST 12-16 15:39 → EDPENDDISTM 12-16 15:45
PROVIDERS: Emergency Medicine; Internal Medicine; Physician Assistant
DX: L03.115 Cellulitis of right lower limb (principal); L03.116 Cellulitis of left lower limb; I87.8 Other specified disorders of veins; L97.919 Non-pressure chronic ulcer of unspecified part of right lower leg with unspecified severity; L97.929 Non-pressure chronic ulcer of unspecified part of left lower leg with unspecified severity; I11.0 Hypertensive heart disease with heart failure; I50.9 Heart failure, unspecified; I25.5 Ischemic cardiomyopathy; I34.0 Nonrheumatic mitral (valve) insufficiency; I25.10 Atherosclerotic heart disease of native coronary artery without angina pectoris; J44.9 Chronic obstructive pulmonary disease, unspecified; E55.9 Vitamin D deficiency, unspecified; E78.5 Hyperlipidemia, unspecified; I73.9 Peripheral vascular disease, unspecified; I25.2 Old myocardial infarction; F32.9 Major depressive disorder, single episode, unspecified; F10.21 Alcohol dependence, in remission; F17.210 Nicotine dependence, cigarettes, uncomplicated; Z86.711 Personal history of pulmonary embolism; R73.03 Prediabetes; Z82.49 Family history of ischemic heart disease and other diseases of the circulatory system; Z91.19 Patient's noncompliance with other medical treatment and regimen; R00.0 Tachycardia, unspecified; R79.82 Elevated C-reactive protein (CRP); Z79.01 Long term (current) use of anticoagulants
CPT/HCPCS: 73701; 73725; 80048; 80053; 80202; 82565; 82948; 83605; 85025; 85027; 85651; 86140; 87040; 87070; 87075; 87205; 93925; 93970; 94640; 94640 76; 97530 GP; 99281; 99285; A6260; J0295; J1170; J1815; J2543; J3370; J7030; J7050

== ENCOUNTER 2017-12-31 00:03 | Inpatient (IN) | payer OTHER ==
[~2017-12-31] VITALS: Ht 175.3 cm; Wt 86.3 kg
[~2017-12-31 00:03] MED LIST changes: +FUROSEMIDE40 MG PO; +VENTOLIN HFA18 GM IH
[2017-12-31 00:41] LABS: BASOPHIL (%) 0.4 % (0-1); EOSINOPHIL (%) 0.7 % (0-5); EOSINOPHIL COUNT 0.1 K/uL (0-0.3); HEMATOCRIT 38.6 % (38.0-50.0); HEMOGLOBIN 12.4 G/DL (12.5-16.6); IMMATURE GRANULOCYTE (%) 0.4 % (0.0-0.7); LYMPHOCYTE (%) 9.8 % (15-42); MCH 27.5 PG (29.0-34.0); MCHC 32.1 G/DL (30.0-36.0); MCV 85.6 FL (86-99); MONOCYTE (%) 13.3 % (3-12); MONOCYTE COUNT 1.3 K/uL (0-0.8); NEUTROPHIL (%) 75.4 % (45-76); NEUTROPHIL COUNT 7.3 K/uL (1.8-6.4); PLATELET COUNT 277 K/uL (156-360); RBC DIS.WIDTH-CV 19.8 % (11.8-14.6); RBC DIS.WIDTH-SD 58.4 % (39-53); RED BLOOD COUNT 4.51 M/uL (4.00-5.50); WHITE BLOOD COUNT 9.7 K/uL (4.1-10.2)
[2017-12-31 00:45] LABS: CHLORIDE 100 mEq/L (99-109); POTASSIUM 4.4 mEq/L (3.7-5.4); SODIUM 133 mEq/L (136-147)
[2017-12-31 00:47] LABS: GLUCOSE 118 mg/dL (70-99)
[2017-12-31 00:49] LABS: INTER. NORMALIZED RATIO 1.5
[2017-12-31 00:51] LABS: CREATININE 1.1 mg/dL (0.6-1.3); GFR ESTIMATE (CALCULATED) > 59 mL/min/ (58.99-99999)
[2017-12-31 00:52] LABS: PTT 29.1 SEC (25-37); UREA NITROGEN (BUN) 15 mg/dL (9-23)
[2017-12-31] MEDS ORDERED: ADULT ASPIRIN R81 MG PO (01:25)
[2017-12-31] MEDS ORDERED: ELIQUIS5 MG PO (01:26)
[2017-12-31 03:34] LABS: MAGNESIUM 1.8 mg/dL (1.3-2.7)
[2017-12-31 03:45] VITALS: BP 135/92
[2017-12-31 08:12] VITALS: BP 134/85
[2017-12-31 11:06] VITALS: BP 112/74
[2017-12-31 16:21] VITALS: BP 114/72
[2017-12-31 20:09] VITALS: BP 132/77
[2017-12-31 23:58] LABS: APPEARANCE CLEAR ((CLEAR)); BILIRUBIN NEGATIVE; BLOOD NEGATIVE; COLOR YELLOW ((YELLOW)); GLUCOSE (STRIP) NEGATIVE; KETONES NEGATIVE; LEUKOCYTES NEGATIVE; NITRITE NEGATIVE; PROTEIN (STRIP) 30; SPECIFIC GRAVITY 1.013 (1.000-1.030); UROBILINOGEN 0.2 MG/DL (0.2-1.0)
[2018-01-01 00:29] VITALS: BP 128/72
[2018-01-01 06:11] LABS: HEMATOCRIT 39.9 % (38.0-50.0); HEMOGLOBIN 12.5 G/DL (12.5-16.6); MCH 27.2 PG (29.0-34.0); MCHC 31.3 G/DL (30.0-36.0); MCV 86.9 FL (86-99); PLATELET COUNT 290 K/uL (156-360); RBC DIS.WIDTH-CV 20.6 % (11.8-14.6); RBC DIS.WIDTH-SD 61.6 % (39-53); RED BLOOD COUNT 4.59 M/uL (4.00-5.50); WHITE BLOOD COUNT 9.4 K/uL (4.1-10.2)
[2018-01-01 06:34] LABS: CHLORIDE 105 MEQ/L (99-109); CREATININE 1.4 MG/DL (0.6-1.3); GFR ESTIMATE (CALCULATED) 56 mL/min/ (58.99-99999); GLUCOSE 90 mg/dL (70-99); POTASSIUM 4.1 MEQ/L (3.7-5.4); SODIUM 136 MEQ/L (136-147); UREA NITROGEN (BUN) 18 mg/dL (9-23)
[2018-01-01 08:00] VITALS: BP 121/79
[2018-01-01 12:00] VITALS: BP 111/75
[2018-01-01 15:38] VITALS: BP 124/74
[2018-01-01 19:49] VITALS: BP 120/81
[2018-01-01 23:30] VITALS: BP 107/81
[2018-01-02 03:40] VITALS: BP 115/78
[2018-01-02 06:16] LABS: HEMATOCRIT 38.9 % (38.0-50.0); MCH 26.9 PG (29.0-34.0); MCHC 30.8 G/DL (30.0-36.0); MCV 87.2 FL (86-99); PLATELET COUNT 289 K/uL (156-360); RBC DIS.WIDTH-SD 60.6 % (39-53); RED BLOOD COUNT 4.46 M/uL (4.00-5.50); WHITE BLOOD COUNT 9.3 K/uL (4.1-10.2)
[2018-01-02 06:26] LABS: CHLORIDE 103 MEQ/L (99-109); CREATININE 1.3 MG/DL (0.6-1.3); GFR ESTIMATE (CALCULATED) > 59 mL/min/ (58.99-99999); GLUCOSE 107 mg/dL (70-99); POTASSIUM 4.2 MEQ/L (3.7-5.4); SODIUM 134 MEQ/L (136-147); UREA NITROGEN (BUN) 23 mg/dL (9-23)
[2018-01-02 08:13] VITALS: BP 120/74
[2018-01-02 12:03] VITALS: BP 114/79
[2018-01-02 16:07] VITALS: BP 118/78
[2018-01-02 18:39] VITALS: BP 115/73
[2018-01-02 23:36] VITALS: BP 118/80
[2018-01-03 04:31] VITALS: BP 114/78
[2018-01-03 08:09] VITALS: BP 123/81
[2018-01-03 08:21] LABS: CHLORIDE 102 MEQ/L (99-109); CREATININE 1.3 MG/DL (0.6-1.3); GFR ESTIMATE (CALCULATED) > 59 mL/min/ (58.99-99999); GLUCOSE 93 mg/dL (70-99); POTASSIUM 4.8 MEQ/L (3.7-5.4); SODIUM 135 MEQ/L (136-147); UREA NITROGEN (BUN) 22 mg/dL (9-23)
[2018-01-03 11:51] VITALS: BP 133/81
[2018-01-03 16:39] VITALS: BP 115/76
[2018-01-03 19:41] VITALS: BP 136/80
[2018-01-03 23:29] VITALS: BP 138/97
[2018-01-04 04:09] VITALS: BP 143/84
[2018-01-04 05:55] LABS: HEMATOCRIT 39.8 % (38.0-50.0); HEMOGLOBIN 12.3 G/DL (12.5-16.6); MCH 26.7 PG (29.0-34.0); MCHC 30.9 G/DL (30.0-36.0); MCV 86.5 FL (86-99); PLATELET COUNT 293 K/uL (156-360); RBC DIS.WIDTH-CV 20.6 % (11.8-14.6); RBC DIS.WIDTH-SD 62.6 % (39-53); WHITE BLOOD COUNT 9.1 K/uL (4.1-10.2)
[2018-01-04 06:33] LABS: CHLORIDE 102 MEQ/L (99-109); CREATININE 1.2 MG/DL (0.6-1.3); GFR ESTIMATE (CALCULATED) > 59 mL/min/ (58.99-99999); GLUCOSE 95 mg/dL (70-99); POTASSIUM 4.8 MEQ/L (3.7-5.4); SODIUM 134 MEQ/L (136-147); UREA NITROGEN (BUN) 21 mg/dL (9-23)
[2018-01-04 09:36] VITALS: BP 137/86
[2018-01-04 16:42] VITALS: BP 124/76
[2018-01-04 23:38] VITALS: BP 134/91
[2018-01-05 04:02] VITALS: BP 142/82
[2018-01-05 05:34] LABS: HEMATOCRIT 39.7 % (38.0-50.0); HEMOGLOBIN 12.1 G/DL (12.5-16.6); MCH 26.8 PG (29.0-34.0); MCHC 30.5 G/DL (30.0-36.0); PLATELET COUNT 297 K/uL (156-360); RBC DIS.WIDTH-CV 20.6 % (11.8-14.6); RBC DIS.WIDTH-SD 64.7 % (39-53); RED BLOOD COUNT 4.51 M/uL (4.00-5.50); WHITE BLOOD COUNT 8.6 K/uL (4.1-10.2)
[2018-01-05 06:02] LABS: CHLORIDE 103 MEQ/L (99-109); CREATININE 1.3 MG/DL (0.6-1.3); GFR ESTIMATE (CALCULATED) > 59 mL/min/ (58.99-99999); GLUCOSE 117 mg/dL (70-99); SODIUM 132 MEQ/L (136-147); UREA NITROGEN (BUN) 20 mg/dL (9-23)
[2018-01-05 07:45] VITALS: BP 145/89
[2018-01-05 11:52] VITALS: BP 129/87
[2018-01-05 16:32] VITALS: BP 125/71
[2018-01-05 20:07] VITALS: BP 132/74
[2018-01-05 23:46] VITALS: BP 136/78
[2018-01-06 04:03] VITALS: BP 155/88
[2018-01-06 07:52] VITALS: BP 144/76
[2018-01-06 11:36] VITALS: BP 142/71
[2018-01-06 15:27] VITALS: BP 137/70
[2018-01-06 19:25] VITALS: BP 131/80
[2018-01-07 00:10] VITALS: BP 122/78
[2018-01-07 04:41] VITALS: BP 141/68
[2018-01-07 08:13] VITALS: BP 150/87
[2018-01-07] MEDS ORDERED: AUGMENTIN875 MG PO (12:41)
[2018-01-07] MEDS ORDERED: ATORVASTATIN CA20 MG PO (12:44)
== END 2018-01-07 15:42 | DRG 603 ==
LOC: EME 00:03 → 3EAST 01:27 → EDOF 01:27 → ENRESERV 01:32 → 3EAST 03:33
PROVIDERS: Hospitalist; Internal Medicine; Physician Assistant
DX: L03.116 Cellulitis of left lower limb (principal); L03.115 Cellulitis of right lower limb; I70.348 Atherosclerosis of unspecified type of bypass graft(s) of the left leg with ulceration of other part of lower leg; I70.242 Atherosclerosis of native arteries of left leg with ulceration of calf; L97.229 Non-pressure chronic ulcer of left calf with unspecified severity; I87.2 Venous insufficiency (chronic) (peripheral); L97.219 Non-pressure chronic ulcer of right calf with unspecified severity; E87.1 Hypo-osmolality and hyponatremia; R33.9 Retention of urine, unspecified; I13.0 Hypertensive heart and chronic kidney disease with heart failure and stage 1 through stage 4 chronic kidney disease, or unspecified chronic kidney disease; I50.22 Chronic systolic (congestive) heart failure; N18.3 Chronic kidney disease, stage 3 (moderate); J44.9 Chronic obstructive pulmonary disease, unspecified; E55.9 Vitamin D deficiency, unspecified; E78.5 Hyperlipidemia, unspecified; I25.10 Atherosclerotic heart disease of native coronary artery without angina pectoris; I25.5 Ischemic cardiomyopathy; F10.21 Alcohol dependence, in remission; F32.9 Major depressive disorder, single episode, unspecified; M24.562 Contracture, left knee; M24.561 Contracture, right knee; I34.0 Nonrheumatic mitral (valve) insufficiency; I25.2 Old myocardial infarction; Z79.01 Long term (current) use of anticoagulants; Z86.711 Personal history of pulmonary embolism; Z86.718 Personal history of other venous thrombosis and embolism; Z87.891 Personal history of nicotine dependence; Z91.19 Patient's noncompliance with other medical treatment and regimen; Z95.820 Peripheral vascular angioplasty status with implants and grafts; Z95.0 Presence of cardiac pacemaker; Z79.82 Long term (current) use of aspirin
CPT/HCPCS: 71046; 74018; 80048; 80202; 81003; 83605; 83735; 85025; 85027; 85610; 85730; 87040; 94640; 94640 76; 97530 GP; 99202; 99281; 99285; A6260; J0295; J0690; J2543; J3370; J7030; J7040; J7050

== ENCOUNTER 2018-02-26 20:13 | Inpatient (IN) | payer OTHER ==
[~2018-02-26] VITALS: Ht 175.3 cm; Wt 90.0 kg
[~2018-02-26 20:13] MED LIST changes: +ADULT ASPIRIN R81 MG PO; +ATORVASTATIN CA20 MG PO; +AUGMENTIN875 MG PO
[2018-02-26 22:46] LABS: BASOPHIL (%) 0.4 % (0-1); BASOPHIL COUNT 0.1 K/uL (0-0.1); EOSINOPHIL (%) 0.3 % (0-5); EOSINOPHIL COUNT 0.1 K/uL (0-0.3); HEMATOCRIT 41.7 % (38.0-50.0); HEMOGLOBIN 13.4 G/DL (12.5-16.6); IMMATURE GRANULOCYTE (%) 0.7 % (0.0-0.7); LYMPHOCYTE (%) 4.2 % (15-42); LYMPHOCYTE COUNT 0.9 K/uL (1.0-2.8); MCH 26.9 PG (29.0-34.0); MCHC 32.1 G/DL (30.0-36.0); MONOCYTE (%) 5.9 % (3-12); MONOCYTE COUNT 1.3 K/uL (0-0.8); NEUTROPHIL (%) 88.5 % (45-76); NEUTROPHIL COUNT 19.7 K/uL (1.8-6.4); RBC DIS.WIDTH-CV 19.3 % (11.8-14.6); RBC DIS.WIDTH-SD 56.7 % (39-53); RED BLOOD COUNT 4.99 M/uL (4.00-5.50); WHITE BLOOD COUNT 22.3 K/uL (4.1-10.2)
[2018-02-26 22:54] LABS: ALBUMIN 3.1 g/dL (3.2-4.8); CHLORIDE 94 mEq/L (99-109); POTASSIUM 4.9 mEq/L (3.7-5.4); SODIUM 129 mEq/L (136-147)
[2018-02-26 22:56] LABS: GLUCOSE 94 mg/dL (70-99)
[2018-02-26 22:58] LABS: TOTAL BILIRUBIN 1.5 mg/dL (0.0-1.0)
[2018-02-26 23:00] LABS: ALKALINE PHOSPHATASE 114 IU/L (3-129); CREATININE 1.2 mg/dL (0.6-1.3); GFR ESTIMATE (CALCULATED) > 59 mL/min/ (58.99-99999)
[2018-02-26 23:01] LABS: UREA NITROGEN (BUN) 27 mg/dL (9-23)
[2018-02-26 23:02] LABS: AST (GOT) 18 IU/L (2-34)
[2018-02-26 23:03] LABS: ALT (GPT) 13 IU/L (3-49)
[2018-02-26 23:47] LABS: MCV 83.6 FL (86-99); PLATELET COUNT 366 K/uL (156-360)
[2018-02-27 03:36] VITALS: BP 100/61
[2018-02-27 07:47] VITALS: BP 111/66
[2018-02-27 09:30] LABS: CHLORIDE 101 MEQ/L (99-109); CREATININE 1.2 MG/DL (0.6-1.3); GFR ESTIMATE (CALCULATED) > 59 mL/min/ (58.99-99999); GLUCOSE 92 mg/dL (70-99); POTASSIUM 4.3 MEQ/L (3.7-5.4); SODIUM 132 MEQ/L (136-147); UREA NITROGEN (BUN) 23 mg/dL (9-23)
[2018-02-27] MEDS ORDERED: LISINOPRIL2.5 MG PO (09:39)
[2018-02-27] MEDS ORDERED: LASIX40 MG PO ×2 (09:40)
[2018-02-27] MEDS ORDERED: COREG3.125 M1 PO (09:40)
[2018-02-27] MEDS ORDERED: LO-DOSE ASPIRIN81 M1 PO (09:40)
[2018-02-27] MEDS ORDERED: SPIRIVA RESPIMAT4 GM IH (09:42)
[2018-02-27] MEDS ORDERED: ELIQUIS5 MG PO (09:42)
[2018-02-27] MEDS ORDERED: LEXAPRO20 MG PO (09:42)
[2018-02-27 09:44] LABS: HEMATOCRIT 39.2 % (38.0-50.0); HEMOGLOBIN 12.3 G/DL (12.5-16.6); MCH 26.5 PG (29.0-34.0); MCHC 31.4 G/DL (30.0-36.0); MCV 84.5 FL (86-99); PLATELET COUNT 282 K/uL (156-360); RBC DIS.WIDTH-SD 57.1 % (39-53); RED BLOOD COUNT 4.64 M/uL (4.00-5.50)
[2018-02-27 16:10] VITALS: BP 112/77
[2018-02-28 00:09] VITALS: BP 131/102
[2018-02-28 08:05] VITALS: BP 114/73
[2018-02-28 11:24] LABS: CHLORIDE 105 MEQ/L (99-109); CREATININE 1.1 MG/DL (0.6-1.3); GFR ESTIMATE (CALCULATED) > 59 mL/min/ (58.99-99999); GLUCOSE 110 mg/dL (70-99); POTASSIUM 4.1 MEQ/L (3.7-5.4); SODIUM 136 MEQ/L (136-147); UREA NITROGEN (BUN) 19 mg/dL (9-23)
[2018-02-28 11:41] LABS: BASOPHIL (%) 0.3 % (0-1); EOSINOPHIL COUNT 0.1 K/uL (0-0.3); HEMATOCRIT 38.1 % (38.0-50.0); HEMOGLOBIN 11.8 G/DL (12.5-16.6); IMMATURE GRANULOCYTE (%) 0.4 % (0.0-0.7); LYMPHOCYTE (%) 5.5 % (15-42); LYMPHOCYTE COUNT 0.7 K/uL (1.0-2.8); MCH 26.5 PG (29.0-34.0); MCV 85.6 FL (86-99); MONOCYTE (%) 8.8 % (3-12); MONOCYTE COUNT 1.2 K/uL (0-0.8); NEUTROPHIL COUNT 11.2 K/uL (1.8-6.4); RBC DIS.WIDTH-CV 19.2 % (11.8-14.6); RED BLOOD COUNT 4.45 M/uL (4.00-5.50); WHITE BLOOD COUNT 13.3 K/uL (4.1-10.2)
[2018-02-28 11:43] LABS: PLAT.SUFFICIENCY ADEQUATE; PLATELET COUNT 254 K/uL (156-360)
[2018-02-28 15:16] VITALS: BP 112/73
[2018-02-28 23:44] VITALS: BP 117/61
[2018-03-01 07:21] VITALS: BP 121/65
[2018-03-01 11:06] LABS: HEMOGLOBIN A1c (GLYCOHEMOGLOB) 5.8 % (Below 5.7)
[2018-03-01 15:17] VITALS: BP 118/72
[2018-03-01 23:45] VITALS: BP 120/75
[2018-03-02 05:34] LABS: BASOPHIL (%) 0.5 % (0-1); BASOPHIL COUNT 0.1 K/uL (0-0.1); EOSINOPHIL (%) 1.4 % (0-5); EOSINOPHIL COUNT 0.2 K/uL (0-0.3); HEMOGLOBIN 12.1 G/DL (12.5-16.6); IMMATURE GRANULOCYTE (%) 0.3 % (0.0-0.7); LYMPHOCYTE (%) 7.3 % (15-42); LYMPHOCYTE COUNT 0.9 K/uL (1.0-2.8); MCH 26.6 PG (29.0-34.0); MCV 85.7 FL (86-99); MONOCYTE (%) 8.2 % (3-12); NEUTROPHIL (%) 82.3 % (45-76); NEUTROPHIL COUNT 9.8 K/uL (1.8-6.4); PLATELET COUNT 228 K/uL (156-360); RBC DIS.WIDTH-CV 19.3 % (11.8-14.6); RED BLOOD COUNT 4.55 M/uL (4.00-5.50)
[2018-03-02 06:08] LABS: CHLORIDE 103 MEQ/L (99-109); CREATININE 1.3 MG/DL (0.6-1.3); GFR ESTIMATE (CALCULATED) > 59 mL/min/ (58.99-99999); POTASSIUM 4.2 MEQ/L (3.7-5.4); SODIUM 137 MEQ/L (136-147); UREA NITROGEN (BUN) 20 mg/dL (9-23)
[2018-03-02 06:43] LABS: GLUCOSE 82 mg/dL (70-99)
[2018-03-02 07:40] VITALS: BP 120/81
[2018-03-02] MEDS ORDERED: AUGMENTIN875 MG PO (12:19)
[2018-03-02] MEDS ORDERED: BACTRIM,SEPT1 TABLET PO (12:19)
[2018-03-02] MEDS ORDERED: SSD25GM TP (12:21)
== END 2018-03-02 16:41 | disposition home health service (06) | DRG 872 ==
LOC: EME → EDBD 20:13 → EME 20:13 → 5SOUTH 02-27 01:48 → ENRESERV 02-27 01:48 → EDOF 02-27 01:48 → ENRESERV 02-27 02:26 → 5SOUTH 02-27 02:59
PROVIDERS: Emergency Medicine; Hospitalist; Physician Assistant; Physician Assistant Medical; Student in an Organized Health Care Education/Training Program
DX: A41.9 Sepsis, unspecified organism (principal); L03.115 Cellulitis of right lower limb; L03.116 Cellulitis of left lower limb; E11.51 Type 2 diabetes mellitus with diabetic peripheral angiopathy without gangrene; I11.0 Hypertensive heart disease with heart failure; I50.9 Heart failure, unspecified; E78.5 Hyperlipidemia, unspecified; E87.1 Hypo-osmolality and hyponatremia; L97.909 Non-pressure chronic ulcer of unspecified part of unspecified lower leg with unspecified severity; J44.9 Chronic obstructive pulmonary disease, unspecified; I87.2 Venous insufficiency (chronic) (peripheral); I42.9 Cardiomyopathy, unspecified; F32.9 Major depressive disorder, single episode, unspecified; F10.21 Alcohol dependence, in remission; E11.622 Type 2 diabetes mellitus with other skin ulcer; I25.10 Atherosclerotic heart disease of native coronary artery without angina pectoris; Z91.19 Patient's noncompliance with other medical treatment and regimen; Z91.14 Patient's other noncompliance with medication regimen; I25.2 Old myocardial infarction; Z87.891 Personal history of nicotine dependence; Z79.82 Long term (current) use of aspirin; Z79.899 Other long term (current) drug therapy
CPT/HCPCS: 73590; 80048; 80053; 80202; 83036; 83605; 84145 90; 85025; 85027; 87040; 94640; 94640 76; 99281; 99284; A6260; J2543; J3370; J7030; J7050

== ENCOUNTER 2018-03-12 22:58 | Inpatient (IN) | payer OTHER ==
[~2018-03-12] VITALS: Ht 175.3 cm; Wt 75.8 kg
[~2018-03-12 22:58] MED LIST changes: +BACTRIM,SEPT1 TABLET PO; +COREG3.125 M1 PO; +LASIX40 MG PO; +LO-DOSE ASPIRIN81 M1 PO
[2018-03-13 01:21] LABS: BASOPHIL (%) 0.4 % (0-1); BASOPHIL COUNT 0.1 K/uL (0-0.1); EOSINOPHIL (%) 1.1 % (0-5); EOSINOPHIL COUNT 0.2 K/uL (0-0.3); HEMATOCRIT 43.5 % (38.0-50.0); HEMOGLOBIN 13.7 G/DL (12.5-16.6); IMMATURE GRANULOCYTE (%) 0.9 % (0.0-0.7); LYMPHOCYTE (%) 5.1 % (15-42); LYMPHOCYTE COUNT 0.8 K/uL (1.0-2.8); MCH 26.5 PG (29.0-34.0); MCHC 31.5 G/DL (30.0-36.0); MCV 84.1 FL (86-99); MONOCYTE (%) 8.3 % (3-12); MONOCYTE COUNT 1.3 K/uL (0-0.8); NEUTROPHIL (%) 84.2 % (45-76); NEUTROPHIL COUNT 12.9 K/uL (1.8-6.4); NRBC (%) 0.1 /100 WBC (0-0); PLATELET COUNT 275 K/uL (156-360); RBC DIS.WIDTH-CV 18.7 % (11.8-14.6); RBC DIS.WIDTH-SD 55.9 % (39-53); RED BLOOD COUNT 5.17 M/uL (4.00-5.50); WHITE BLOOD COUNT 15.3 K/uL (4.1-10.2)
[2018-03-13 02:03] LABS: CHLORIDE 97 mEq/L (99-109); POTASSIUM 5.3 mEq/L (3.7-5.4); SODIUM 132 mEq/L (136-147)
[2018-03-13 02:05] LABS: GLUCOSE 108 mg/dL (70-99); TOTAL PROTEIN 6.8 g/dL (6.4-8.3)
[2018-03-13 02:07] LABS: TOTAL BILIRUBIN 1.2 mg/dL (0.0-1.0)
[2018-03-13 02:09] LABS: ALKALINE PHOSPHATASE 158 IU/L (3-129); CREATININE 1.2 mg/dL (0.6-1.3); GFR ESTIMATE (CALCULATED) > 59 mL/min/ (58.99-99999)
[2018-03-13 02:10] LABS: UREA NITROGEN (BUN) 23 mg/dL (9-23)
[2018-03-13 02:11] LABS: AST (GOT) 23 IU/L (2-34)
[2018-03-13 02:12] LABS: ALT (GPT) 16 IU/L (3-49)
[2018-03-13 04:11] LABS: APPEARANCE CLEAR ((CLEAR)); BILIRUBIN NEGATIVE; BLOOD NEGATIVE; COLOR AMBER ((YELLOW)); GLUCOSE (STRIP) NEGATIVE; KETONES NEGATIVE; LEUKOCYTES NEGATIVE; NITRITE NEGATIVE; PROTEIN (STRIP) 30; SPECIFIC GRAVITY 1.018 (1.000-1.030)
[2018-03-13 04:36] VITALS: BP 135/89
[2018-03-13 07:59] VITALS: BP 120/80
[2018-03-13] MEDS ORDERED: ATORVASTATIN CA20 MG PO (13:56)
[2018-03-13] MEDS ORDERED: VENTOLIN HFA18 GM IH (13:57)
[2018-03-13 16:14] VITALS: BP 111/73
[2018-03-14 00:19] VITALS: BP 104/69
[2018-03-14 05:27] LABS: BASOPHIL (%) 0.2 % (0-1); EOSINOPHIL (%) 0.7 % (0-5); EOSINOPHIL COUNT 0.1 K/uL (0-0.3); HEMATOCRIT 39.8 % (38.0-50.0); HEMOGLOBIN 12.5 G/DL (12.5-16.6); IMMATURE GRANULOCYTE (%) 0.6 % (0.0-0.7); LYMPHOCYTE (%) 5.5 % (15-42); LYMPHOCYTE COUNT 0.6 K/uL (1.0-2.8); MCH 26.4 PG (29.0-34.0); MCHC 31.4 G/DL (30.0-36.0); MCV 84.1 FL (86-99); MONOCYTE (%) 11.1 % (3-12); MONOCYTE COUNT 1.3 K/uL (0-0.8); NEUTROPHIL (%) 81.9 % (45-76); NEUTROPHIL COUNT 9.4 K/uL (1.8-6.4); PLATELET COUNT 218 K/uL (156-360); RBC DIS.WIDTH-CV 18.6 % (11.8-14.6); RBC DIS.WIDTH-SD 55.8 % (39-53); RED BLOOD COUNT 4.73 M/uL (4.00-5.50); WHITE BLOOD COUNT 11.5 K/uL (4.1-10.2)
[2018-03-14 05:58] LABS: CHLORIDE 103 MEQ/L (99-109); CREATININE 1.2 MG/DL (0.6-1.3); GFR ESTIMATE (CALCULATED) > 59 mL/min/ (58.99-99999); GLUCOSE 93 mg/dL (70-99); POTASSIUM 4.7 MEQ/L (3.7-5.4); SODIUM 136 MEQ/L (136-147); UREA NITROGEN (BUN) 21 mg/dL (9-23)
[2018-03-14 07:50] VITALS: BP 123/82
[2018-03-14 15:58] VITALS: BP 97/67
[2018-03-14 22:41] VITALS: BP 101/71
[2018-03-15 06:53] VITALS: BP 110/78
[2018-03-15 07:07] LABS: BASOPHIL (%) 0.4 % (0-1); EOSINOPHIL (%) 1.3 % (0-5); EOSINOPHIL COUNT 0.1 K/uL (0-0.3); HEMATOCRIT 39.6 % (38.0-50.0); HEMOGLOBIN 12.1 G/DL (12.5-16.6); IMMATURE GRANULOCYTE (%) 0.8 % (0.0-0.7); LYMPHOCYTE (%) 8.5 % (15-42); LYMPHOCYTE COUNT 0.8 K/uL (1.0-2.8); MCH 25.7 PG (29.0-34.0); MCHC 30.6 G/DL (30.0-36.0); MCV 84.3 FL (86-99); MONOCYTE (%) 12.3 % (3-12); MONOCYTE COUNT 1.2 K/uL (0-0.8); NEUTROPHIL (%) 76.7 % (45-76); NEUTROPHIL COUNT 7.4 K/uL (1.8-6.4); PLATELET COUNT 238 K/uL (156-360); RBC DIS.WIDTH-CV 18.5 % (11.8-14.6); WHITE BLOOD COUNT 9.7 K/uL (4.1-10.2)
[2018-03-15 07:08] LABS: CHLORIDE 102 MEQ/L (99-109); CREATININE 1.2 MG/DL (0.6-1.3); GFR ESTIMATE (CALCULATED) > 59 mL/min/ (58.99-99999); GLUCOSE 88 mg/dL (70-99); POTASSIUM 4.7 MEQ/L (3.7-5.4); SODIUM 134 MEQ/L (136-147); UREA NITROGEN (BUN) 18 mg/dL (9-23)
[2018-03-15 16:37] VITALS: BP 126/78
[2018-03-15 21:00] VITALS: BP 92/66
[2018-03-15 23:50] VITALS: BP 103/69
[2018-03-16 06:06] LABS: HEMATOCRIT 35.9 % (38.0-50.0); HEMOGLOBIN 10.8 G/DL (12.5-16.6); MCHC 30.1 G/DL (30.0-36.0); MCV 83.1 FL (86-99); PLATELET COUNT 268 K/uL (156-360); RBC DIS.WIDTH-CV 18.6 % (11.8-14.6); RBC DIS.WIDTH-SD 55.2 % (39-53); RED BLOOD COUNT 4.32 M/uL (4.00-5.50); WHITE BLOOD COUNT 11.7 K/uL (4.1-10.2)
[2018-03-16 06:30] LABS: CHLORIDE 101 MEQ/L (99-109); CREATININE 1.1 MG/DL (0.6-1.3); GFR ESTIMATE (CALCULATED) > 59 mL/min/ (58.99-99999); GLUCOSE 88 mg/dL (70-99); POTASSIUM 4.3 MEQ/L (3.7-5.4); SODIUM 135 MEQ/L (136-147); UREA NITROGEN (BUN) 18 mg/dL (9-23)
[2018-03-16 08:05] VITALS: BP 114/67
[2018-03-16 17:01] VITALS: BP 117/76
[2018-03-17 00:10] VITALS: BP 142/84
[2018-03-17 07:12] VITALS: BP 136/78
[2018-03-17 11:10] VITALS: BP 104/63
[2018-03-17 15:07] VITALS: BP 124/74
[2018-03-17 20:00] VITALS: BP 110/69
[2018-03-18 00:31] VITALS: BP 115/80
[2018-03-18 03:56] VITALS: BP 123/70
[2018-03-18 07:43] VITALS: BP 114/76
[2018-03-18 12:14] VITALS: BP 119/77
[2018-03-18] MEDS ORDERED: BACTRIM,SEPT1 TABLET PO (14:20)
[2018-03-18] MEDS ORDERED: AUGMENTIN875 MG PO (14:21)
[2018-03-18] MEDS ORDERED: DOCUSATE SODIU100 MG PO (14:24)
[2018-03-18] MEDS ORDERED: ENDOCET 5-3251 EACH PO (14:25)
== END 2018-03-18 19:27 | DRG 854 ==
LOC: EME → EDBD 22:58 → EME 22:58 → EDOF 03-13 03:08 → 5SOUTH 03-13 03:08 → ENRESERV 03-13 03:11 → 5SOUTH 03-13 04:09
PROVIDERS: Emergency Medicine; Physician Assistant; Surgery
PROC: 0Y6D0Z3 Detachment at Left Upper Leg, Low, Open Approach (ICD-10-PCS; principal; 2018-03-15)
DX: A41.9 Sepsis, unspecified organism (principal); L03.115 Cellulitis of right lower limb; L03.116 Cellulitis of left lower limb; L97.929 Non-pressure chronic ulcer of unspecified part of left lower leg with unspecified severity; L97.819 Non-pressure chronic ulcer of other part of right lower leg with unspecified severity; L97.219 Non-pressure chronic ulcer of right calf with unspecified severity; I13.0 Hypertensive heart and chronic kidney disease with heart failure and stage 1 through stage 4 chronic kidney disease, or unspecified chronic kidney disease; I50.22 Chronic systolic (congestive) heart failure; N18.1 Chronic kidney disease, stage 1; M24.562 Contracture, left knee; E78.5 Hyperlipidemia, unspecified; I25.10 Atherosclerotic heart disease of native coronary artery without angina pectoris; I25.5 Ischemic cardiomyopathy; I27.20 Pulmonary hypertension, unspecified; I08.1 Rheumatic disorders of both mitral and tricuspid valves; J44.9 Chronic obstructive pulmonary disease, unspecified; I73.9 Peripheral vascular disease, unspecified; F32.9 Major depressive disorder, single episode, unspecified; F17.200 Nicotine dependence, unspecified, uncomplicated; I25.2 Old myocardial infarction; Z79.01 Long term (current) use of anticoagulants; Z86.711 Personal history of pulmonary embolism; Z79.82 Long term (current) use of aspirin; Z91.14 Patient's other noncompliance with medication regimen; Z91.19 Patient's noncompliance with other medical treatment and regimen; Z95.820 Peripheral vascular angioplasty status with implants and grafts
CPT/HCPCS: 73590; 80048; 80053; 80202; 81003; 83605; 85025; 85027; 87040; 88307; 88311; 94640; 97530 GP; 99281; 99285; J1100; J1170; J2543; J3010; J3370; J7030; J7050; J7120